=== PATIENT | female | born 1955 | race Hispanic/Latino ===

== ENCOUNTER 2022-06-22 12:19 | Outpatient (CLI) | payer BC | END 2022-06-22 12:20 | disposition home or self-care (01) | LOC: CSHRAD 12:19 | PROVIDERS: ATTEND Internal Medicine Rheumatology | DX: M46.1 Sacroiliitis, not elsewhere classified (principal); M25.559 Pain in unspecified hip | CPT/HCPCS: 72170; 73521 ==